=== PATIENT | male | born 1945 | race Caucasian/White ===

== ENCOUNTER 2017-09-21 06:22 | Day surgery (SDC) | payer OTHER ==
[~2017-09-21 06:22] MED LIST: INTESTINEX1 CA1 PO; KETO10TA2 PO; LEVSIN/SL0.125 MG SL; TAMS0.4C PO; Vasotec 10MG TAB PO
== END 2017-09-21 10:30 | disposition home or self-care (01) ==
LOC: AMB-ENDOS 06:22 → CIR.AMB 10:15 → AMB-ENDOS 10:15
DX: D12.2 Benign neoplasm of ascending colon (principal); D12.5 Benign neoplasm of sigmoid colon; K64.0 First degree hemorrhoids

== ENCOUNTER 2017-12-19 10:46 | Inpatient (IN) | payer OTHER ==
[~2017-12-19] VITALS: Ht 160 cm; Wt 105.7 kg
[2017-12-19] MEDS ORDERED: ASA81 MG PO (11:41)
[2017-12-19] MEDS ORDERED: LANTUS SOL100 UNIT/1 (11:41)
[2017-12-19] MEDS ORDERED: LOSARTAN POTASS25 MG PO (11:42)
[2017-12-19] MEDS ORDERED: METFORMIN HCL500 MG PO (11:42)
[2017-12-25] MEDS ORDERED: VASOTEC10 MG PO (09:55)
== END 2017-12-25 17:40 | disposition home or self-care (01) | DRG 395 ==
LOC: O/R 12-25 05:45 → SURH 12-25 07:00 → O/R 12-25 17:40
DX: D12.2 Benign neoplasm of ascending colon (principal); Z53.09 Procedure and treatment not carried out because of other contraindication; Y84.6 Urinary catheterization as the cause of abnormal reaction of the patient, or of later complication, without mention of misadventure at the time of the procedure

== ENCOUNTER 2018-10-09 11:24 | Inpatient (IN) | payer OTHER ==
[~2018-10-09] VITALS: Ht 165.1 cm; Wt 98.0 kg
[~2018-10-09 11:24] MED LIST changes: +ASA81 MG PO; +LANTUS SOL100 UNIT/1; +LOSARTAN POTASS25 MG PO; +METFORMIN HCL500 MG PO; +VASOTEC10 MG PO
[2018-11-07] MEDS ORDERED: INTESTINEX680 M1 PO (07:44)
[2018-11-07] MEDS ORDERED: FLAGYL500MG PO ×2 (07:45→07:53)
[2018-11-07] MEDS ORDERED: ULTRACET PO (07:46)
[2018-11-07] MEDS ORDERED: HYZAAR 100-12.1 EACH PO (07:47)
[2018-11-07] MEDS ORDERED: TOPROL XL50 M1 PO (07:48)
[2018-11-07] MEDS ORDERED: CARAFATE1 GM PO (07:49)
[2018-11-07] MEDS ORDERED: FAMOTIDINE20 MG PO (07:49)
== END 2018-11-07 09:36 | disposition home or self-care (01) | DRG 354 ==
LOC: SURG 10-24 08:15 → O/R 10-31 06:40 → SURG 10-31 06:40
PROVIDERS: Urology; ADMIT Surgery
PROC: 0KUL07Z Supplement Left Abdomen Muscle with Autologous Tissue Substitute, Open Approach (ICD-10-PCS; 2018-10-31)
PROC: 0KUK07Z Supplement Right Abdomen Muscle with Autologous Tissue Substitute, Open Approach (ICD-10-PCS; 2018-10-31)
PROC: 0T7D8DZ Dilation of Urethra with Intraluminal Device, Via Natural or Artificial Opening Endoscopic (ICD-10-PCS; 2018-10-31)
PROC: 0WUF0JZ Supplement Abdominal Wall with Synthetic Substitute, Open Approach (ICD-10-PCS; principal; 2018-10-31 07:00)
PROC: 0WJF4ZZ Inspection of Abdominal Wall, Percutaneous Endoscopic Approach (ICD-10-PCS; 2018-10-31 07:00)
DX: K43.0 Incisional hernia with obstruction, without gangrene (principal); I97.89 Other postprocedural complications and disorders of the circulatory system, not elsewhere classified; K42.0 Umbilical hernia with obstruction, without gangrene; N99.114 Postprocedural urethral stricture, male, unspecified; E11.9 Type 2 diabetes mellitus without complications; K57.30 Diverticulosis of large intestine without perforation or abscess without bleeding; I10 Essential (primary) hypertension; E78.49 Other hyperlipidemia; R53.1 Weakness; E86.0 Dehydration; E87.8 Other disorders of electrolyte and fluid balance, not elsewhere classified; N40.0 Benign prostatic hyperplasia without lower urinary tract symptoms; Z79.4 Long term (current) use of insulin